=== PATIENT | male | born 1960 ===

== ENCOUNTER → 2024-04-02 16:02 | Outpatient (REF) | payer BC, SELFPAY | LOC: RAD 16:02 | PROVIDERS: ATTENDING PHYSICIAN Student in an Organized Health Care Education/Training Program | DX: R51.9 Headache, unspecified (principal); Z87.820 Personal history of traumatic brain injury | CPT/HCPCS: 70450 ==

== ENCOUNTER → 2024-05-12 10:59 | Outpatient (REF) | payer BC, SELFPAY | LOC: CLAB 10:59 | PROVIDERS: ATTENDING PHYSICIAN Otolaryngology | DX: J32.8 Other chronic sinusitis (principal) | CPT/HCPCS: 87070; 87147; 87186; 87205 ==

== ENCOUNTER 2024-08-06 06:24 | Day surgery (SDC) | payer BC, SELFPAY | END 2024-08-06 14:35 | disposition home or self-care (01) | LOC: GI 06:24 | PROVIDERS: ATTENDING PHYSICIAN Internal Medicine Gastroenterology | DX: Z12.11 Encounter for screening for malignant neoplasm of colon (principal); K57.30 Diverticulosis of large intestine without perforation or abscess without bleeding; K64.8 Other hemorrhoids; D12.3 Benign neoplasm of transverse colon; K51.40 Inflammatory polyps of colon without complications; Z86.0100 Personal history of colon polyps, unspecified | CPT/HCPCS: 45385; 45380; 88305 ==